=== PATIENT | male | born 1950 | race Caucasian/White ===

== ENCOUNTER 2016-12-03 03:53 | Emergency (ER) | payer MEDICARE, OTHER ==
[~2016-12-03] VITALS: Ht 170.2 cm; Wt 88.6 kg
[~2016-12-03 03:53] MED LIST: APR50 PO; ASPI81TA3 PO; BACL20TA PO; CARV6.25 PO; DOCU-159 PO; GABA400C14 PO; LEVEM SC; LYR75 PO; MODA200T12 PO; MULT-552 PO; ROSU20TA PO
[2016-12-03 03:59] VITALS: Ht 170.2 cm; Wt 88.6 kg
[2016-12-03] MEDS ORDERED: KETOROLAC 60 MG INJ IM STA (04:07)
--- NOTE | 2016-12-03 04:16 | ERD ---
ER Documentation Chief Complaint Date/Time DATE: 12/03/16 TIME: 04:15 Chief Complaint Rt knee pain and lower back pain,from [facility] This is a 66-year-old male with a history of lumbosacral radiculopathy complaints of back pain that radiates down to his right leg. This is similar to his previous symptomology. No bowel or bladder incontinence. No other current complaints. ROS All systems reviewed and are negative except as per history of present illness. Medications Home Meds Reported Medications Multivitamins* (Once Daily*) 1 Tab Tablet, 1 TAB PO DAILY, TAB 05/29/16 Modafinil* (Provigil*) 200 Mg Tablet, 200 MG PO DAILY, TAB 05/29/16 Pregabalin* (Lyrica*) 75 Mg Capsule, 75 MG PO BID, CAP 05/29/16 Baclofen* (Baclofen*) 20 Mg Tablet, 20 MG PO DAILY, TAB 05/29/16 Rosuvastatin Calcium* (Crestor*) 20 Mg Tablet, 20 MG PO QHS, #30 TAB 05/29/16 Carvedilol* (Coreg*) 6.25 Mg Tablet, 6.25 MG PO BID, #60 TAB 05/29/16 Docusate Sodium* (Docusate Sodium*) 100 Mg Capsule, 100 MG PO BID, #60 CAP 05/29/16 Hydralazine Hcl* (Hydralazine Hcl*) 50 Mg Tab, 50 MG PO DAILY, #120 TAB 05/29/16 Insulin Detemir* (Levemir*) 100 U/Ml Vial, 22 UNIT SC BID, VIAL 05/29/16 Gabapentin* (Gabapentin*) 400 Mg Capsule, 400 MG PO QID, #90 CAP 05/29/16 Aspirin (Aspirin) 81 Mg Chew, 81 MG PO DAILY 08/11/13 Allergies Allergies: Coded Allergies: No Known Allergy (Unverified , 05/29/16) PMhx/Soc History of Surgery: Yes (see chart) Anesthesia Reaction: No Hx Neurological Disorder: Yes (L5-S1 laminectomy, neuropathy) Hx Respiratory Disorders: No Hx Cardiac Disorders: Yes (CABG 06/2013, Hypertension, CAD) Hx Psychiatric Problems: Yes (bipolar, anxiety) Hx Miscellaneous Medical Probl: Yes (DM) Hx Alcohol Use: No Hx Substance Use: No (denies) Hx Tobacco Use: No Smoking Status: Never smoker Physical Exam Vitals Vital Signs Date Time Temp Pulse Resp B/P Pulse Ox O2 Delivery O2 Flow Rate FiO2 12/03/16 04:11 66 18 156/70 99 Room Air 12/03/16 03:59 97.6 69 18 168/73 97 Physical Exam Const: [] Head: Atraumatic Eyes: Normal Conjunctiva ENT: Normal External Ears, Nose and Mouth. Neck: Full range of motion..~ No meningismus. Resp: Clear to auscultation bilaterally Cardio: Regular rate and rhythm, no murmurs Abd: Soft, non tender, non distended. Normal bowel sounds Skin: No petechiae or rashes Back: No midline or flank tenderness Ext: No cyanosis, or edema Neur: Awake and alert Psych: Normal Mood and Affect Results 24 hrs Current Medications Medications (Trade) Dose Ordered Sig/Katy Route PRN Reason Start Time Stop Time Status Last Admin Dose Admin Ketorolac Tromethamine (Toradol) 60 mg ONCE STAT IM 12/03/16 04:07 12/03/16 04:09 DC Lorazepam (Ativan) 1 mg ONCE ONCE IM 12/03/16 04:30 12/03/16 04:31 Procedures/MDM Medical decision-making: This patient comes in with general essentially acute exacerbation of chronic lower back pain. At this point is clinically stable. His pain is resolved. He'll be discharged home. Departure Diagnosis: Primary Impression: Pain Condition: Stable JULIANNE LICEA Dec 03, 2016 04:16
[2016-12-03] MEDS ORDERED: LORAZEPAM 2 MG INJ IM ONE (04:30)
[2016-12-03 06:38] VITALS: BP 140/67; PULSE 63; RESP 20; TEMP 96.8
== END 2016-12-03 06:45 | disposition home or self-care (01) ==
LOC: E/R 03:53
DX: M54.5 Low back pain (principal); I10 Essential (primary) hypertension; I25.10 Atherosclerotic heart disease of native coronary artery without angina pectoris; E11.9 Type 2 diabetes mellitus without complications; Z79.4 Long term (current) use of insulin; Z79.82 Long term (current) use of aspirin; Z95.1 Presence of aortocoronary bypass graft
CPT/HCPCS: 96372; 99284; J1885; J2060

== ENCOUNTER 2017-06-12 10:19 | Emergency (ER) | payer MEDICARE, OTHER ==
[~2017-06-12] VITALS: Ht 170.2 cm; Wt 90.9 kg
[~2017-06-12 10:19] MED LIST changes: -APR50 PO; +HYDR-3672 PO
[2017-06-12 10:40] VITALS: Ht 170.2 cm; Wt 90.9 kg
[2017-06-12 10:45] VITALS: TEMP 98.4
[2017-06-12 11:06] LABS: BASOPHIL # 0.1 10^3/ul (0.0-0.1); BASOPHILS % 0.5 % (0.0-2.0); EOSINOPHILS # 0.2 10^3/ul (0.0-0.5); EOSINOPHILS % 1.9 % (0.0-7.0); HEMATOCRIT 38.7 % (42.0-52.0); HEMOGLOBIN 13.4 g/dl (14.0-18.0); LYMPHOCYTES # 1.4 10^3/ul (0.8-2.9); LYMPHOCYTES % 13.3 % (15.0-51.0); MEAN CORPUSCULAR HEMOGLOBIN 31.7 pg (29.0-33.0); MEAN CORPUSCULAR HGB CONC 34.6 g/dl (32.0-37.0); MEAN CORPUSCULAR VOLUME 91.5 fl (82.0-101.0); MEAN PLATELET VOLUME 10.4 fl (7.4-10.4); MONOCYTE # 0.8 10^3/ul (0.3-0.9); MONOCYTES % 7.6 % (0.0-11.0); NEUTROPHILS % 76.2 % (39.0-77.0); PLATELET COUNT 187 10^3/UL (140-415); RED BLOOD COUNT 4.23 10^6/ul (4.70-6.10); RED CELL DISTRIBUTION WIDTH 14.9 % (11.5-14.5); WHITE BLOOD COUNT 10.6 10^3/ul (4.8-10.8)
[2017-06-12 11:24] LABS: INR 1.12; PROTIME 14.4 Sec (12.2-14.2); PT RATIO 1.1
--- NOTE | 2017-06-12 11:24 | RADRPT ---
PROCEDURE: XR Chest. CLINICAL INDICATION: Chest Pain. TECHNIQUE: Single frontal view of the chest was obtained. COMPARISON: Chest x-ray from 09/19/2016 FINDINGS: Sternotomy wires and clips consistent with CABG are again noted. Anterior cervical spine fusion hardware is again noted. The heart and mediastinum are within normal limits. The lungs are clear. There is no significant pleural effusion or pneumothorax. IMPRESSION: No acute disease. Status post CABG. Cervical spine fusion hardware. RPTAT: EE Physician Alexander Date Time Electronically viewed and signed by Physician Alexander on 06/12/2017 11:23 /
[2017-06-12 11:25] LABS: PARTIAL THROMBOPLASTIN TIME 33.2 Sec (25.0-35.0)
[2017-06-12 11:28] LABS: CALCIUM 9.4 mg/dl (8.4-10.2); CREATININE 1.07 mg/dl (0.61-1.24); POTASSIUM 4.7 mmol/L (3.5-5.1)
[2017-06-12 11:40] LABS: TROPONIN-I 0.013 ng/ml (0.00-0.12)
--- NOTE | 2017-06-12 11:57 | RADRPT ---
PROCEDURE: CT Brain without contrast. CLINICAL INDICATION: Head trauma status post fall. Syncope. TECHNIQUE: A CT of the brain was performed on a multidetector CT scanner utilizing axial sections from the skull base through the vertex without contrast. Images were reviewed on a high-resolution [employer] workstation. Exam CTDI = 42.56 x2 mGy and the DLP = 720.23 mGy-cm. One or more of the following dose reduction techniques were used: Automated exposure control Adjustment of the mA and/or kV according to patient size. Use of iterative reconstruction technique. COMPARISON: Head CT 09/19/2016 FINDINGS: Mild diffuse cerebral and cerebellar atrophy is present. There is proportionate dilatation of the v entricular system and sulci in a symmetric fashion. There is prominence of the extraaxial spaces sec ondary to atrophy. There is no evidence of intracranial hemorrhage, mass effect or midline shift. N o abnormal intra-axial or extra-axial fluid collections are seen. The density of the brain is dia l and the heath/white matter differentiation is well preserved. Mild patchy diffuse deep white matte r microangiopathic ischemic change is seen. The osseous structures are unremarkable. Paranasal s inuses are clear. Vascular calcifications are identified. IMPRESSION: 1. No intracranial hemorrhage, mass effect or midline shift. 2. Mild generalized atrophy. Mild microangiopathic ischemic change. 3. Intracranial atherosclerosis. RPTAT: AAEE .Nika Veloz MD, Date Time Electronically viewed and signed by .Nika Veloz MD, MD on 06/12/2017 11:56 .O/
--- NOTE | 2017-06-12 12:02 | RADRPT ---
PROCEDURE: CT cervical spine without contrast. CLINICAL INDICATION: Trauma and pain. TECHNIQUE: Axial imaging was obtained through the cervical spine using a multi-slice CT scanner. [facility] [employer] [facility] scan of the cervical spine without contrast protocols were performed. CTDI: 22.54 and DLP: 539.19. One or more of the following dose reduction techniques were used: - Automated exposure control. - Adjustment of the mA and/or kV according to patient size. Use of iterative reconstruction technique. COMPARISON: Cervical spine series 09/08/2016 FINDINGS: There is mild reversal normal cervical lordosis. There is no evidence of acute fractures or subluxa tions. The patient status post anterior fusion and interbody disk spacer placement at the C4-C7 sandip tebral levels in good position without disruption. There is degenerative changes of the right C3-C7 lateral masses. There is degenerative changes of the posterior C4-C7 vertebral bodies resulting in bilateral neural foraminal narrowing. There is moderate central spinal canal stenosis at the C5-6 and C6-7 disk levels. No other levels of central spinal canal stenosis or neural foraminal narrowin g. The posterior elements are intact. There is no evidence of prevertebral soft tissue swelling. This portion the upper lung pleural and airway visualized are unremarkable. IMPRESSION: 1. No evidence of acute fractures or subluxations. 2. Status post anterior fusion interbody disk spacer placement involving the C4-C7 vertebral levels as above. 3. Degenerate changes neural foraminal narrowing and central spinal canal stenosis as above. RPTAT:AAJJ Physician Benny Date Time Electronically viewed and signed by Physician Benny on 06/12/2017 12:02 BM/
[2017-06-12] MEDS ORDERED: morphine 4 MG/ML VIAL IV STA (13:05)
[2017-06-12] MEDS ORDERED: KETOROLAC 30 MG INJ IV STA (13:05)
--- NOTE | 2017-06-12 13:51 | ERD ---
ER Documentation Chief Complaint Date/Time DATE: 06/12/17 TIME: 13:44 Chief Complaint UNWITNESSED FALL AT BOARD AND CARE. LOC UNKNOWN HPI This is a 67-year-old male comes emergency room because he said that he was bending over to pick something up and he fell and bumped his head. He denies he does not think that he lost consciousness.. If so it was extremely brief lasting less than 1 second. He fell and now complains of exacerbation of his chronic lower back pain. Has some neck pain but states that he also usually has neck pain. I reviewed the patient's EMR and see that he has chronic pain in the same areas. Is on multiple medications but none of them are blood thinners. Feels otherwise well. ROS All systems reviewed and are negative except as per history of present illness. Medications Home Meds Reported Medications Multivitamins* (Once Daily*) 1 Tab Tablet, 1 TAB PO DAILY, TAB 05/29/16 Modafinil* (Provigil*) 200 Mg Tablet, 200 MG PO DAILY, TAB 05/29/16 Pregabalin* (Lyrica*) 75 Mg Capsule, 75 MG PO BID, CAP 05/29/16 Baclofen* (Baclofen*) 20 Mg Tablet, 20 MG PO DAILY, TAB 05/29/16 Rosuvastatin Calcium* (Crestor*) 20 Mg Tablet, 20 MG PO QHS, #30 TAB 05/29/16 Carvedilol* (Coreg*) 6.25 Mg Tablet, 6.25 MG PO BID, #60 TAB 05/29/16 Docusate Sodium* (Docusate Sodium*) 100 Mg Capsule, 100 MG PO BID, #60 CAP 05/29/16 Hydralazine Hcl* (Hydralazine Hcl*) 50 Mg Tab, 50 MG PO DAILY, #120 TAB 05/29/16 Insulin Detemir* (Levemir*) 100 U/Ml Vial, 22 UNIT SC BID, VIAL 05/29/16 Gabapentin* (Gabapentin*) 400 Mg Capsule, 400 MG PO QID, #90 CAP 05/29/16 Aspirin (Aspirin) 81 Mg Chew, 81 MG PO DAILY 08/11/13 Allergies Allergies: Coded Allergies: No Known Allergy (Unverified , 06/12/17) PMhx/Soc History of Surgery: Yes (L5-S1 laminectomy, neuropathy) Anesthesia Reaction: No Hx Neurological Disorder: Yes (L5-S1 laminectomy, neuropathy) Hx Respiratory Disorders: No Hx Cardiac Disorders: Yes (CABG 06/2013, Hypertension, CAD) Hx Psychiatric Problems: Yes (bipolar, anxiety) Hx Miscellaneous Medical Probl: Yes (DM) Hx Alcohol Use: No Hx Substance Use: No (denies) Hx Tobacco Use: Yes (1 PACK/MONTH) Smoking Status: Current some day smoker Physical Exam Vitals Vital Signs Date Time Temp Pulse Resp B/P Pulse Ox O2 Delivery O2 Flow Rate FiO2 06/12/17 12:30 66 18 164/72 98 Room Air 06/12/17 10:45 98.4 65 17 164/70 94 Room Air 06/12/17 10:40 98.4 66 17 164/70 94 Physical Exam Const: [] No distress Head: Atraumatic Eyes: Normal Conjunctiva, EOMI, PRL ENT: Normal External Ears, Nose and Mouth. Neck: Full range of motion..~ No meningismus. Resp: Clear to auscultation bilaterally Cardio: Regular rate and rhythm, no murmurs Abd: Soft, non tender, non distended. Normal bowel sounds Skin: No petechiae or rashes Back: No midline or flank tenderness, no deformities. Patient states that he has tenderness on palpation of the lumbar lumbar paraspinal muscles. No palpable spasm Ext: No cyanosis, or edema Neur: Awake and alert oriented 3, no focal deficits, cranial 2 through 12 intact, no cerebellar deficits Psych: Normal Mood and Affect Result Diagram: 06/12/17 1045 06/12/17 1045 Results 24 hrs Laboratory Tests Test 06/12/17 10:29 06/12/17 10:45 Bedside Glucose 144mg/dL White Blood Count 10.610^3/ul Red Blood Count 4.2310^6/ul Hemoglobin 13.4g/dl Hematocrit 38.7% Mean Corpuscular Volume 91.5fl Mean Corpuscular Hemoglobin 31.7pg Mean Corpuscular Hemoglobin Concent 34.6g/dl Red Cell Distribution Width 14.9% Platelet Count 95503^3/UL Mean Platelet Volume 10.4fl Neutrophils % 76.2% Lymphocytes % 13.3% Monocytes % 7.6% Eosinophils % 1.9% Basophils % 0.5% Nucleated Red Blood Cells % 0.0/100WBC Neutrophils # (Manual) 8.110^3/ul Lymphocytes # 1.410^3/ul Monocytes # 0.810^3/ul Eosinophils # 0.210^3/ul Basophils # 0.110^3/ul Nucleated Red Blood Cells # 0.010^3/ul Prothrombin Time 14.4Sec Prothrombin Time Ratio 1.1 INR International Normalized Ratio 1.12 Activated Partial Thromboplast Time 33.2Sec Sodium Level 143mmol/L Potassium Level 4.7mmol/L Chloride Level 102mmol/L Carbon Dioxide Level 29mmol/L Anion Gap 17 Blood Urea Nitrogen 32mg/dl Creatinine 1.07mg/dl Glucose Level 134mg/dl Calcium Level 9.4mg/dl Troponin I 0.013ng/ml Current Medications Medications (Trade) Dose Ordered Sig/Katy Route PRN Reason Start Time Stop Time Status Last Admin Dose Admin Morphine Sulfate (morphine) 4 mg ONCE STAT IV 06/12/17 13:05 06/12/17 13:07 DC Ketorolac Tromethamine (Toradol) 30 mg ONCE STAT IV 06/12/17 13:05 06/12/17 13:07 DC Procedures/MDM 67-year-old male with possible brief syncopal episode and head injury with normal neurological exam, no concerning laboratory abnormalities and no signs of cardiac ischemia. No obvious objective injury. Patient was given morphine and Toradol for pain. Is in stable condition and I am comfortable sending him back to his long-term. Patient has known hypertension and recommending that he see his primary care doctor for possible medication adjustment if necessary I am recommending [place] primary care follow-up in 1-2 days and discharging with some [place]. EKG interpretation: Normal sinus rhythm rate of 65, normal axis, no ST or T- wave changes concerning for acute ischemia. front desk monitor interpretation: Normal sinus rhythm that arrhythmia Chest x-ray interpretation: I see no acute process. I see no fracture, no infiltrate, no pulmonary edema, pneumothorax CT head interpretation: I see no acute process. See no hemorrhage, no mass- effect or midline shift, no skull fracture CT C-spine interpretation: I see no acute process, see no fracture dislocation or subluxation. No foreign body Departure Diagnosis: Primary Impression: Head injury Additional Impressions: Acute exacerbation of chronic low back pain Syncope Condition: Stable SHANNON GENAO DO Jun 12, 2017 13:51
[2017-06-12] MEDS ORDERED: HYDR-906 PO (13:52)
[2017-06-12 13:54] LABS: ADD UMIC YES; UR ASCORBIC ACID NEGATIVE (NEGATIVE); UR BILIRUBIN (Dip) NEGATIVE (NEGATIVE); UR BLOOD (Dip) 1+ mg/dL (NEGATIVE); UR CLARITY CLEAR (CLEAR); UR COLOR YELLOW (YELLOW); UR GLUCOSE (Dip) NEGATIVE (NEGATIVE); UR KETONES (Dip) NEGATIVE (NEGATIVE); UR LEUKOCYTE ESTERASE (Dip) NEGATIVE Leu/ul (NEGATIVE); UR NITRITE (Dip) NEGATIVE (NEGATIVE); UR RBC 2 /HPF (0-5); UR SPECIFIC GRAVITY (Dip) 1.009 (1.003-1.030); UR TOTAL PROTEIN (Dip) 2+ mg/dl (NEGATIVE); UR UROBILINOGEN (Dip) NEGATIVE (NEGATIVE)
[2017-06-12] MEDS ORDERED: LABETALOL HCL 20MG INJ IV ONE (14:30)
[2017-06-12 15:00] VITALS: BP 165/101; PULSE 70; RESP 87
== END 2017-06-12 15:10 | disposition home or self-care (01) ==
LOC: E/R 10:19
DX: S09.90XA Unspecified injury of head, initial encounter (principal); S39.92XA Unspecified injury of lower back, initial encounter; R55 Syncope and collapse; I10 Essential (primary) hypertension; I25.10 Atherosclerotic heart disease of native coronary artery without angina pectoris; E11.9 Type 2 diabetes mellitus without complications; F17.210 Nicotine dependence, cigarettes, uncomplicated; W18.39XA Other fall on same level, initial encounter; Y92.9 Unspecified place or not applicable; Z95.1 Presence of aortocoronary bypass graft; Z79.4 Long term (current) use of insulin; Z79.82 Long term (current) use of aspirin
CPT/HCPCS: 36415; 70450; 71010; 72125; 80048; 81001; 82962; 84484; 85025; 85610; 85730; 93005; 96374; 96375; 99285; J1885; J2270

== ENCOUNTER 2017-06-16 06:04 | Emergency (ER) | payer MEDICARE, OTHER ==
[~2017-06-16] VITALS: Ht 170.2 cm; Wt 90.9 kg
[~2017-06-16 06:04] MED LIST changes: +HYDR-906 PO
[2017-06-16 06:09] VITALS: Ht 170.2 cm; Wt 90.9 kg
[2017-06-16] MEDS ORDERED: OXYCODONE/ACETAMINOPHEN (5/325) TAB PO ONE (07:00)
--- NOTE | 2017-06-16 07:42 | RADRPT ---
PROCEDURE: XR Left Shoulder. CLINICAL INDICATION: Left shoulder pain TECHNIQUE: 2 views of the left shoulder are available for review. COMPARISON: None available FINDINGS: There is no acute fracture. There is elevation of the humeral head. There is a chronic ossification at the superior acromioclavicular capsule compatible with a remote i njury. Soft tissues are grossly unremarkable. IMPRESSION: 1. No radiographic evidence of acute fracture. 2. Remote acromioclavicular joint injury with ossification of the superior capsule. 3. Elevation of the humeral head suggestive of a chronic full-thickness rotator cuff tear. RPTAT: UU .Oneal Dhillon MD, MD Date Time Electronically viewed and signed by .Oneal Dhillon MD, on 06/16/2017 07:42 .K/
--- NOTE | 2017-06-16 07:43 | RADRPT ---
PROCEDURE: XR Wrist. CLINICAL INDICATION: Left wrist pain, fall TECHNIQUE: AP, lateral and oblique views of the left wrist were performed. COMPARISON: No prior studies are available for comparison. FINDINGS: There is no acute fracture or dislocation. Alignment is normal. There is mild first carpometacarpal and triscaphe joint osteoarthrosis. There is mild dorsal soft tissue swelling. There are capsular calcifications near the first carpomet acarpal and second metacarpal phalangeal joints. IMPRESSION: 1. No radiographic evidence of acute fracture. 2. Mild first carpometacarpal and triscaphe joint osteoarthrosis. 3. Mild dorsal soft tissue swelling. 4. Capsular calcifications at the second metacarpophalangeal joint and first carpometacarpal joint. RPTAT: UU .Oneal Dhillon MD, Date Time Electronically viewed and signed by .Oneal Dhillon MD, on 06/16/2017 07:43 .K/
--- NOTE | 2017-06-16 09:36 | ERD ---
ER Documentation Chief Complaint Date/Time DATE: 06/16/17 TIME: 09:36 [id number] wrist [facility] r/t fall HPI 67-year-old male with chronic neck and back pain status post cervical spine surgery about 1 year ago brought in by ambulance after a ground-level fall onto his left shoulder. He complains of left shoulder and left-sided neck pain. He states that he was trying to get out of his bed into his wheelchair when he felt spasming in his whole body and his legs buckled. He states that this happens often. He does not think that the surgery helped him much. He does complain of chronic tingling in his arms but no weakness. He denies any head injury today or loss of consciousness. His pain is 9 out of 10, in his left shoulder and left wrist, radiating up into his neck. No new paresthesias or weakness. He denies any other injuries or pain. ROS All systems reviewed and are negative except as per history of present illness. Medications Home Meds Active Scripts Hydrocodone/Acetaminophen ([place] 5-325 Tablet) 1 Each Tablet, 1 EACH PO Q6, #10 TAB Prov:SHANNON GENAO 06/12/17 Reported Medications Multivitamins* (Once Daily*) 1 Tab Tablet, 1 TAB PO DAILY, TAB 05/29/16 Modafinil* (Provigil*) 200 Mg Tablet, 200 MG PO DAILY, TAB 05/29/16 Pregabalin* (Lyrica*) 75 Mg Capsule, 75 MG PO BID, CAP 05/29/16 Baclofen* (Baclofen*) 20 Mg Tablet, 20 MG PO DAILY, TAB 05/29/16 Rosuvastatin Calcium* (Crestor*) 20 Mg Tablet, 20 MG PO QHS, #30 TAB 05/29/16 Carvedilol* (Coreg*) 6.25 Mg Tablet, 6.25 MG PO BID, #60 TAB 05/29/16 Docusate Sodium* (Docusate Sodium*) 100 Mg Capsule, 100 MG PO BID, #60 CAP 05/29/16 Hydralazine Hcl* (Hydralazine Hcl*) 50 Mg Tab, 50 MG PO DAILY, #120 TAB 05/29/16 Insulin Detemir* (Levemir*) 100 U/Ml Vial, 22 UNIT SC BID, VIAL 8/2/16 Gabapentin* (Gabapentin*) 400 Mg Capsule, 400 MG PO QID, #90 CAP 05/29/16 Aspirin (Aspirin) 81 Mg Chew, 81 MG PO DAILY 08/11/13 Allergies Allergies: Coded Allergies: No Known Allergy (Unverified , 06/12/17) PMhx/Soc History of Surgery: Yes (L5-S1 laminectomy, neuropathy) Anesthesia Reaction: No Hx Neurological Disorder: Yes (L5-S1 laminectomy, neuropathy) Hx Respiratory Disorders: No Hx Cardiac Disorders: Yes (CABG 06/2013, Hypertension, CAD) Hx Psychiatric Problems: Yes (bipolar, anxiety) Hx Miscellaneous Medical Probl: Yes (DM) Hx Alcohol Use: No Hx Substance Use: No (denies) Hx Tobacco Use: Yes (1 PACK/MONTH) Smoking Status: Current some day smoker FmHx Family History: No diabetes Physical Exam Vitals Vital Signs Date Time Temp Pulse Resp B/P Pulse Ox O2 Delivery O2 Flow Rate FiO2 06/16/17 06:09 97.8 63 18 158/75 96 Physical Exam Const: Well-appearing, no apparent distress Head: Atraumatic Eyes: Normal Conjunctiva ENT: Normal External Ears, Nose and Mouth. Neck: Full range of motion..~ No meningismus. No midline tenderness. Mild left paraspinal muscle tenderness. Resp: Clear to auscultation bilaterally Cardio: Sternotomy scar noted. Regular rate and rhythm, no murmurs Abd: Soft, non tender, non distended. Normal bowel sounds Skin: No petechiae or rashes Back: No midline or flank tenderness Ext: No cyanosis, or edema. Left anterior shoulder swelling but no skin color change. There is tenderness to palpation of the anterior aspect of the shoulder joint. Limited range of motion secondary to pain. 2+ radial pulses. Butt Maker strength normal bilaterally. Sensations grossly intact. Wrist mildly tender but full range of motion at the elbow and wrist. No obvious deformities. Neur: Awake and alert Psych: Normal Mood and Affect Results 24 hrs Current Medications Medications (Trade) Dose Ordered Sig/Katy Route PRN Reason Start Time Stop Time Status Last Admin Dose Admin Oxycodone/ Acetaminophen (Percocet (5/ 325)) 1 tab ONCE ONCE PO 06/16/17 07:00 06/16/17 07:01 DC 06/16/17 06:51 Procedures/MDM Imaging: X-ray of left shoulder shows chronic changes, no acute fracture or dislocation X-ray left wrist shows no acute fracture dislocation, chronic changes noted C-spine x-ray shows chronic changes, no acute fracture or subluxation Patient is presenting with left shoulder pain secondary to fall. He has no new neurologic deficits on exam. He has no evidence of head injury. He is hemodynamically stable. Percocet was given for pain. X-rays did not show any acute abnormalities and my suspicion for C-spine injury is low, so I do not think CT of the C-spine is necessary at this time. Patient will be discharged back to his long term facility with return precautions. Departure Diagnosis: Primary Impression: Shoulder contusion Encounter type: initial encounter Laterality: left Qualified Code: S40.012A - Contusion of left shoulder, initial encounter Additional Impressions: Acute shoulder pain due to trauma Laterality: left Qualified Code: M25.512 - Acute shoulder pain due to trauma , left Contracture, left wrist Condition: Stable Patient Instructions: Shoulder Contusion DEONNA SONI MD Jun 16, 2017 09:36
--- NOTE | 2017-06-16 10:21 | RADRPT ---
PROCEDURE: XR Cervical Spine. CLINICAL INDICATION: FALL REORDER SINCE NOT SHOWING IN RADIOLOGY WORKLIST TECHNIQUE: AP, lateral and odontoid views of the cervical spine were performed. The images were re viewed on a PACS workstation. COMPARISON: CT cervical spine 06/12/2017 FINDINGS: On the odontoid view, the superior odontoid is obscured by overlying dental implants. On the lateral view, C1 through C6 are visualized, with C5 and C6 partially obscured by overlying opacities. On th e frontal view, the patient is rotated slightly rightward. These factors limit evaluation. Redemonstrated are postsurgical changes of anterior fusion and interbody disk spacer placement at C4 -C7. The caudal most screw on the right is again seen to be obliquely oriented and projecting outsid e of it's respective plate screw hole, unchanged from recent CT of 06/12/2017. There is persistent mild reversal of the normal cervical lordosis. No acute fracture or subluxation is identified. There is persistent bilateral uncovertebral joint hypertrophy and facet hypertrophy from C2 through C6. Fusion of the C3-C4 facet joints on the right is redemonstrated. Posterior elements appear intac t. The space narrowing and anterior osteophyte and C3-C4 is noted. IMPRESSION: 1. Postsurgical changes of anterior fusion and interbody disk spacer placement at C4-C7, stable comp ared to recent CT cervical spine of 06/12/2017. 2. No gross evidence of acute fracture or subluxation. If there is continued high level of clinical concern for acute fracture, CT may provide a more sensitive evaluation. 3. Multilevel degenerative changes, as described above. RPTAT: QQ Physician Christy Date Time Electronically viewed and signed by Physician Christy on 06/16/2017 10:21 RC/
[2017-06-16 11:00] VITALS: RESP 17; TEMP 98
[2017-06-16 11:51] VITALS: BP 166/73; PULSE 76
== END 2017-06-16 12:27 | disposition home or self-care (01) ==
LOC: E/R 06:04
DX: S40.012A Contusion of left shoulder, initial encounter (principal); M24.532 Contracture, left wrist; I10 Essential (primary) hypertension; I25.10 Atherosclerotic heart disease of native coronary artery without angina pectoris; E11.9 Type 2 diabetes mellitus without complications; F17.210 Nicotine dependence, cigarettes, uncomplicated; W18.39XA Other fall on same level, initial encounter; Y92.9 Unspecified place or not applicable; Z95.1 Presence of aortocoronary bypass graft; Z79.4 Long term (current) use of insulin; Z79.82 Long term (current) use of aspirin
CPT/HCPCS: 72040; 73030